=== PATIENT | male | born 1985 | race Caucasian/White ===

== ENCOUNTER → 2016-09-18 | Outpatient (CLI) | payer OTHER ==
[~2016-09-18] MED LIST: 'PARAFON FORTE500 M1 PO; BACTRIM DS 8001 TA1 PO; CEPHALEXIN500 M1 PO; CLEOCIN HCL300 MG PO; CLINDAMYCIN300 MG PO; CYCLOBENZAPRINE5 M3 PO; DELTASONE20 M1 PO; DOXYCYCLINE100 M3 PO; FLEXERIL5 MG PO; HYDROCODONE BIT1 T11; HYDROCODONE BIT1 T11 PO; MOTRIN600 MG PO; MOTRIN800 MG PO; Motrin,Rufen800 MG PO; NAPROSYN500 MG PO; NKHM; NORCO 5-325 TA1 EACH PO; NORVASC5 MG PO; PREDNICOT20 MG PO; SUBOXONE 8 MG-1 EACH SL; TESSALON PERLE100 MG PO; TORADOL10 MG PO; VICODIN 5/500 505 MG PO; VICODIN ES 7501 TAB PO; VOLTAREN75 MG PO; ZITHROMAX Z PA250 MG PO; ZOFRAN ODT4 MG SL
[2016-09-18 15:51] LABS: BASO % 0.4 % (0.0-1.0); EOS # 0.2 10*3/uL (0.0-0.4); EOS % 2.4 % (1.0-4.0); HEMOGLOBIN 13.7 g/dl (14.0-18.0); LYMPH # 2.6 10*3/uL (1.3-4.4); LYMPH % 26.8 % (27.0-41.0); MEAN CELL VOLUME 88.2 fl (80.0-94.0); MEAN CORPUSCULAR HGB 29.5 pg (27.0-31.0); MEAN CORPUSCULAR HGB CONC 33.4 g/dl (33.0-37.0); MEAN PLATELET VOLUME 9.7 fl (9.6-12.3); MONO # 0.5 10*3/uL (0.1-1.0); MONO % 5.2 % (3.0-9.0); NEUT # 6.3 10*3/uL (2.3-7.9); NEUT % 64.9 % (47.0-73.0); PLATELET COUNT AUTOMATED 421 10*3/uL (130-400); RED BLOOD COUNT 4.65 10*6/uL (4.50-5.90); RED CELL DISTRI WIDTH 12.8 % (0-14.5); WHITE BLOOD COUNT 9.7 10*3/uL (4.8-10.8)
[2016-09-18 16:06] LABS: ALBUMIN 3.7 gm/dl (3.1-4.5); ALKALINE PHOSPHATASE 102 U/L (45-117); BILIRUBIN, TOTAL 0.5 mg/dl (0.2-1.0); BUN 11 mg/dl (7-24); CARBON DIOXIDE 26 mmol/L (21-32); CHLORIDE 106 mmol/L (98-107); EST GLOM FILT AFRICAN AMERICAN > 60 ml/min; GLUCOSE 107 mg/dL (65-99); POTASSIUM 3.5 mmol/L (3.5-5.1); SGOT/AST 55 IU/L (3-35); SGPT/ALT 123 U/L (12-78); SODIUM 143 mmol/L (136-145); TOTAL PROTEIN 7.7 gm/dL (6.4-8.2)
== END | disposition home or self-care (01) ==
LOC: LAB 14:43
PROVIDERS: Family Medicine
DX: F19.10 Other psychoactive substance abuse, uncomplicated (principal); F18.10 Inhalant abuse, uncomplicated

== ENCOUNTER 2016-12-13 20:34 | Emergency (ER) | payer OTHER ==
[~2016-12-13] VITALS: Ht 182.8 cm; Wt 72.1 kg
[2016-12-13 22:27] LABS: BASO % 0.3 % (0.0-1.0); EOS # 0.1 10*3/uL (0.0-0.4); LYMPH # 2.8 10*3/uL (1.3-4.4); LYMPH % 19.3 % (27.0-41.0); MEAN CELL VOLUME 88.5 fl (80.0-94.0); MEAN CORPUSCULAR HGB 28.8 pg (27.0-31.0); MEAN CORPUSCULAR HGB CONC 32.6 g/dl (33.0-37.0); MEAN PLATELET VOLUME 9.6 fl (9.6-12.3); MONO # 0.6 10*3/uL (0.1-1.0); MONO % 4.1 % (3.0-9.0); NEUT % 74.9 % (47.0-73.0); PLATELET COUNT AUTOMATED 455 10*3/uL (130-400); RED BLOOD COUNT 4.86 10*6/uL (4.50-5.90); RED CELL DISTRI WIDTH 13.7 % (0-14.5); WHITE BLOOD COUNT 14.6 10*3/uL (4.8-10.8)
[2016-12-13 22:42] LABS: ALBUMIN 3.7 gm/dl (3.1-4.5); ALKALINE PHOSPHATASE 86 U/L (45-117); BUN 9 mg/dl (7-24); CHLORIDE 105 mmol/L (98-107); CREATININE 0.89 mg/dL (0.70-1.30); POTASSIUM 3.7 mmol/L (3.5-5.1); SGOT/AST 20 IU/L (3-35); SGPT/ALT 36 U/L (12-78); SODIUM 141 mmol/L (136-145); TOTAL PROTEIN 8.5 gm/dL (6.4-8.2)
== END 2016-12-14 03:40 | disposition short-term general hospital (02) ==
LOC: ED 20:34
PROVIDERS: Physician Assistant
DX: A41.9 Sepsis, unspecified organism (principal); R65.20 Severe sepsis without septic shock; L02.413 Cutaneous abscess of right upper limb; F19.10 Other psychoactive substance abuse, uncomplicated; F17.200 Nicotine dependence, unspecified, uncomplicated; Z79.899 Other long term (current) drug therapy; Z88.0 Allergy status to penicillin; Z88.1 Allergy status to other antibiotic agents; Z91.041 Radiographic dye allergy status; Z88.6 Allergy status to analgesic agent

== ENCOUNTER → 2016-12-19 | Outpatient (CLI) | payer OTHER ==
--- NOTE | ~2016-12-19 | PR ---
[place], [place] PROGRESS NOTE NAME: [facility] #: [id number] UNIT #: [id number] ROOM: DOCTOR: TENNILLE EnglishVITOR BIRTHDATE: [birth year] DOS: 12/19/2016 CHIEF COMPLAINT: Abscess wound of the right arm near the elbow area. HISTORY OF PRESENT ILLNESS: This is a 31-year-old male with a history of longstanding IV drug abuse, who presented to the Emergency Room Department on 12/14/2016 with a large abscess of the right elbow area. This was drained in the ER and was noted to be quite large. Apparently, he did have a high lactic acid level 2.6 and a high white count of 14,000, concern for sepsis was noted. The patient was transferred to [facility] for further management. Apparently, according to the patient and family who his mother who brings him in. He had multiple incision and drainages during his stay at [facility] and they did not take him to the operating room for this, it was felt that at the bedside according to the mother. In any case, the patient was treated for 4 days of IV antibiotics and he is PENICILLIN allergic and was sent home to manage the wound. They have been using plain packing to pack the wound with and he presents today with an open wound of the right forearm, elbow area. PAST MEDICAL HISTORY: Significant for the following, he has had a history of a TIA. He has a heroin addiction. He has a history of forearm abscess last year, which he did come here in the [facility]ound [facility] for and sinus brain abscess x 3, has had right rotator cuff surgery, right carpal tunnel surgery. Apparently, he has had surgeries for the brain abscesses. He has had all his teeth removed as well. FAMILY HISTORY: Significant for cancer, hypertension, diabetes and heart disease. SOCIAL HISTORY: He continues to smoke 1-1/2 packs per day. He is and has a history of drug use. ALLERGIES: He IS ALLERGIC TO BENADRYL, PENICILLIN AND RED FOOD DYE. MEDICATIONS: are as follows: Hydroxyzine 50 p.o. q.i.d. p.r.n. for anxiety, clonidine 0.1 mg tablets 2 tablets at bedtime p.r.n. for agitation, naproxen 500 p.o. b.i.d., melatonin 3 mg tablets p.r.n. for insomnia and he is completing a course of Bactrim Double Strength 1 tablet p.o. b.i.d. for 8 days, he states he has about 5 days left. REVIEW OF SYSTEMS: He says since discharge, he has been noted to feel some dyspnea on exertion, occasional chills. No fevers. No nausea or vomiting. No problems with the antibiotics. No chest pains at all. He does have some green drainage associated with the wound. I asked specifically if he has ever had a history of endocarditis and he states that he is not aware of anything related to that. PHYSICAL EXAMINATION: VITAL SIGNS: Temperature is 98.4, pulse 78, respirations 18, blood pressure 100/70. GENERAL: This is a male who appears thin and disheveled, older than his stated [place], [place] PROGRESS NOTE NAME: LISHA KELLY UNIT #: [id number] ROOM: DOCTOR: VITOR NULL M.D. BIRTHDATE: [birth year] age, in no acute distress. His oropharynx is clear. He is completely edentulous. Extraocular movements are intact. Sclerae nonicteric. There is no JVD. LUNGS: Clear to auscultation. CARDIOVASCULAR: S1 and S2, regular rate and rhythm. I do not appreciate a murmur. ABDOMEN: Soft and nontender. EXTREMITIES: He has multiple scars on his lower extremities and upper extremities from previous wounds. The patient states that he never injected himself in the lower extremities and those wounds are from work related carrasco according to the patient. He has multiple echevarria, scars from injection drug use on the bilateral arms and hands also noted. He has an open wound of the right elbow actually 0.5 x 1.6 x 0.4. There is a little bit of undermining at the 6 o'clock position of 0.3. Overall, it looks clean. It is mildly indurated. It is not acutely erythematous. There is no fluctuance. There is no overt cellulitis and there is no necrotic tissue and no purulence. It looks clean. No debridement was done. ASSESSMENT AND PLAN: Abscess of the right elbow, which is stable and clean, it looks good. At this time, I would switch to Sooqini Ag ribbon to it and cover with a foam to keep it protected. I did explain to the family and the patient that he needs to definitely discuss with his PCP regarding his episodes of shortness of breath that he has been having. Followup is in one week. VITOR NULL MD CM:MAURILIO [id number] VITOR NULL M.D. 12/20/16 0121 interface
== END ==
LOC: WOUNDCARE 03:44
DX: L02.413 Cutaneous abscess of right upper limb (principal); F17.210 Nicotine dependence, cigarettes, uncomplicated; Z86.73 Personal history of transient ischemic attack (TIA), and cerebral infarction without residual deficits

== ENCOUNTER → 2016-12-27 | Outpatient (CLI) | payer OTHER ==
--- NOTE | ~2016-12-27 | PR ---
[place], [place] PROGRESS NOTE NAME: LISHA KELLY [facility] #: [id number] UNIT #: [id number] ROOM: DOCTOR: TENNILLE English,VITOR BIRTHDATE: [birth year] DOS: 12/27/2016 CHIEF COMPLAINT: Followup of open wound of the right elbow. HISTORY OF PRESENT ILLNESS: This is a 31-year-old male with a history of IV drug abuse, who had an abscess drained from his right forearm, elbow area. He was seen in the Wound Clinic for last week with an open wound that had some depth to it with a little bit of undermining. Aquacel Ag rope was recommended. The patient comes in for his routine followup. He has no specific complaints. The wound is so small at this point and is not able to pack it anymore. He does have multiple excoriations on both of his forearms and legs from repetitive picking and these are chronic. His vitals are stable. Temperature is 98.3, pulse of 80, respirations 18, blood pressure is 120/82. The wound is measuring much smaller 0.3 x 0.7 x 0.1. It is healing nicely. It is on its way to healing. There is no necrotic tissue. It flush with rest of the skin. No debridement was done. ASSESSMENT AND PLAN: Healing abscess wound of the right forearm, elbow area. We will change to bacitracin and a Band-Aid and have him follow up in one week. I did also recommend for his multiple excoriations that are repetitive and from chronic picking to try TheraHoney and to keep them covered. Followup is in one week. VITOR NULL MD CM:PNTRANS [id number] VITOR NULL M.D. 12/28/16 0057 interface
== END | disposition home or self-care (01) ==
LOC: WOUNDCARE 01:42
DX: L02.413 Cutaneous abscess of right upper limb (principal)

== ENCOUNTER 2016-12-29 16:43 | Emergency (ER) | payer OTHER ==
[~2016-12-29] VITALS: Ht 177.8 cm; Wt 63.5 kg
[2016-12-29 17:28] LABS: BASO % 0.2 % (0.0-1.0); EOS # 0.2 10*3/uL (0.0-0.4); EOS % 1.4 % (1.0-4.0); HEMOGLOBIN 11.1 g/dl (14.0-18.0); LYMPH # 2.5 10*3/uL (1.3-4.4); LYMPH % 21.1 % (27.0-41.0); MEAN CELL VOLUME 85.9 fl (80.0-94.0); MEAN CORPUSCULAR HGB 28.9 pg (27.0-31.0); MEAN CORPUSCULAR HGB CONC 33.6 g/dl (33.0-37.0); MEAN PLATELET VOLUME 9.3 fl (9.6-12.3); MONO # 0.4 10*3/uL (0.1-1.0); MONO % 3.4 % (3.0-9.0); NEUT # 8.7 10*3/uL (2.3-7.9); NEUT % 73.6 % (47.0-73.0); PLATELET COUNT AUTOMATED 328 10*3/uL (130-400); RED BLOOD COUNT 3.84 10*6/uL (4.50-5.90); RED CELL DISTRI WIDTH 13.5 % (0-14.5); WHITE BLOOD COUNT 11.8 10*3/uL (4.8-10.8)
[2016-12-29 17:36] LABS: ACT PARTIAL THROMBO TIME 27.8 SECONDS (20.8-31.5)
[2016-12-29 17:42] LABS: ALBUMIN 3.4 gm/dl (3.1-4.5); ALKALINE PHOSPHATASE 100 U/L (45-117); BUN 19 mg/dl (7-24); CHLORIDE 102 mmol/L (98-107); CPK 617 U/L (39-308); CREATININE 0.71 mg/dL (0.70-1.30); LIPASE 65 U/L (73-393); MAGNESIUM 1.9 mg/dL (1.5-2.1); POTASSIUM 3.6 mmol/L (3.5-5.1); SGOT/AST 37 IU/L (3-35); SGPT/ALT 47 U/L (12-78); SODIUM 134 mmol/L (136-145); TOTAL PROTEIN 7.5 gm/dL (6.4-8.2)
[2016-12-29 17:43] LABS: TROPONIN I < 0.015 ng/ml (<0.045)
[2016-12-29 17:44] LABS: CKMB 5.1 ng/ml (0.5-3.6)
== END 2016-12-29 20:55 | disposition short-term general hospital (02) ==
LOC: ED 16:43
PROVIDERS: Emergency Medicine
DX: L02.01 Cutaneous abscess of face (principal); Z79.899 Other long term (current) drug therapy; Z98.890 Other specified postprocedural states; Z88.0 Allergy status to penicillin; Z88.1 Allergy status to other antibiotic agents; Z91.041 Radiographic dye allergy status; Z88.6 Allergy status to analgesic agent

== ENCOUNTER 2017-10-19 19:58 | Emergency (ER) | payer OTHER ==
[~2017-10-19] VITALS: Ht 182.8 cm; Wt 72.6 kg
== END 2017-10-19 20:20 | disposition home or self-care (01) ==
LOC: ED 19:58
DX: T15.01XA Foreign body in cornea, right eye, initial encounter (principal); Z23 Encounter for immunization; Z98.890 Other specified postprocedural states; Z79.899 Other long term (current) drug therapy; Z88.0 Allergy status to penicillin; Z91.041 Radiographic dye allergy status; Z88.8 Allergy status to other drugs, medicaments and biological substances; W45.8XXA Other foreign body or object entering through skin, initial encounter; Y93.89 Activity, other specified; Y92.69 Other specified industrial and construction area as the place of occurrence of the external cause; Y99.8 Other external cause status

== ENCOUNTER → 2019-12-15 | Outpatient (CLI) | payer BC | END | disposition home or self-care (01) | LOC: COVID19 00:06 | PROVIDERS: ATTEND Internal Medicine | DX: Z20.828 Contact with and (suspected) exposure to other viral communicable diseases (principal) ==

== ENCOUNTER → 2020-10-22 | Outpatient (CLI) | payer OTHER ==
[2020-10-22 12:27] LABS: BASO % 0.4 % (0.0-1.0); EOS # 0.2 10*3/uL (0.0-0.4); EOS % 2.9 % (1.0-4.0); HEMATOCRIT 58.3 % (42.0-52.0); LYMPH # 2.7 10*3/uL (1.3-4.4); MEAN CELL VOLUME 93.1 fl (80.0-94.0); MEAN CORPUSCULAR HGB 33.1 pg (27.0-31.0); MEAN CORPUSCULAR HGB CONC 35.5 g/dl (33.0-37.0); MEAN PLATELET VOLUME 9.9 fl (9.6-12.3); MONO # 0.5 10*3/uL (0.1-1.0); MONO % 6.9 % (3.0-9.0); NEUT # 3.9 10*3/uL (2.3-7.9); NEUT % 52.7 % (47.0-73.0); PLATELET COUNT AUTOMATED 241 10*3/uL (130-400); RED BLOOD COUNT 6.26 10*6/uL (4.50-5.90); WHITE BLOOD COUNT 7.4 10*3/uL (4.8-10.8)
[2020-10-22 12:45] LABS: ALBUMIN 3.7 gm/dl (3.1-4.5); ALKALINE PHOSPHATASE 114 U/L (45-117); BUN 5 mg/dl (7-24); CHLORIDE 111 mmol/L (98-107); CHOLESTEROL 233 mg/dL (<200); CREATININE 0.86 mg/dL (0.70-1.30); LDL CHOLESTEROL 152 mg/dL (9-159); POTASSIUM 3.2 mmol/L (3.5-5.1); SGOT/AST 49 IU/L (3-35); SGPT/ALT 87 U/L (12-78); SODIUM 139 mmol/L (136-145); TOTAL PROTEIN 7.6 gm/dL (6.4-8.2); TRIGLYCERIDES 227 mg/dl (<150)
[2020-10-22 13:10] LABS: VITAMIN D, 25-HYDROXY 26.5 ng/mL (30-100)
== END | disposition home or self-care (01) ==
LOC: LAB 11:57
PROVIDERS: ATTEND Internal Medicine
DX: E03.9 Hypothyroidism, unspecified (principal); M54.5 Low back pain; D52.9 Folate deficiency anemia, unspecified; D51.9 Vitamin B12 deficiency anemia, unspecified; R70.0 Elevated erythrocyte sedimentation rate; R79.82 Elevated C-reactive protein (CRP); R74.8 Abnormal levels of other serum enzymes; R79.89 Other specified abnormal findings of blood chemistry; R53.81 Other malaise; E55.9 Vitamin D deficiency, unspecified; Z13.0 Encounter for screening for diseases of the blood and blood-forming organs and certain disorders involving the immune mechanism; Z13.1 Encounter for screening for diabetes mellitus; Z13.21 Encounter for screening for nutritional disorder; Z13.220 Encounter for screening for lipoid disorders; Z00.01 Encounter for general adult medical examination with abnormal findings

== ENCOUNTER 2021-12-15 08:58 | Inpatient (IN) | payer BC ==
[~2021-12-15] VITALS: Ht 182.9 cm; Wt 77.1 kg
[2021-12-15] VITALS (7 sets, daily range): BP systolic 178–188; BP diastolic 80–100
[2021-12-15 09:32] LABS: BASO % 0.6 % (0.0-1.0); EOS # 0.2 10*3/uL (0.0-0.4); EOS % 2.4 % (1.0-4.0); HEMATOCRIT 52.3 % (42.0-52.0); LYMPH # 1.9 10*3/uL (1.3-4.4); LYMPH % 27.5 % (27.0-41.0); MEAN CELL VOLUME 93.1 fl (80.0-94.0); MEAN CORPUSCULAR HGB CONC 34.4 g/dl (33.0-37.0); MEAN PLATELET VOLUME 9.3 fl (9.6-12.3); MONO # 0.5 10*3/uL (0.1-1.0); MONO % 6.8 % (3.0-9.0); NEUT # 4.4 10*3/uL (2.3-7.9); NEUT % 62.6 % (47.0-73.0); PLATELET COUNT AUTOMATED 324 10*3/uL (130-400); RED BLOOD COUNT 5.62 10*6/uL (4.50-5.90); RED CELL DISTRI WIDTH 13.6 % (0-14.5)
[2021-12-15 09:42] LABS: ACT PARTIAL THROMBO TIME 27.1 SECONDS (20.0-32.1)
[2021-12-15 09:47] LABS: ALKALINE PHOSPHATASE 98 U/L (45-117); BUN 17 mg/dl (7-24); CHLORIDE 112 mmol/L (98-107); CREATININE 0.89 mg/dL (0.70-1.30); POTASSIUM 4.4 mmol/L (3.5-5.1); SGOT/AST 20 IU/L (3-35); SGPT/ALT 42 U/L (12-78); SODIUM 141 mmol/L (136-145); TOTAL PROTEIN 7.5 gm/dL (6.4-8.2)
[2021-12-15 09:48] LABS: ETHYL ALCOHOL < 3.0 mg/dl (<3)
[2021-12-15 10:37] LABS: BILIRUBIN Negative (Negative); BLOOD Negative (Negative); CLARITY Clear (Clear); COLOR Yellow (Yellow); GLUCOSE Negative (Negative); KETONE Trace (Negative); LEUKO ESTERASE Negative (Negative); NITRITE Negative (Negative); PH 5.5 (4.5-8.0); SPECIFIC GRAVITY 1.025 (1.001-1.030)
[2021-12-15 10:49] LABS: URINE AMPHETAMINES < 1000 (1000ng/ml); URINE BARBITURATES < 200 (200ng/ml); URINE BENZODIAZEPINES < 200 (200ng/ml); URINE CANNABINOIDS (THC) < 50 (50ng/ml); URINE COCAINE < 300 (300ng/ml); URINE METHADONE < 300 (300ng/ml); URINE OPIATES < 300 (300ng/ml)
[2021-12-15 10:55] LABS: MUCOUS TRACE; RBC 0-2 rbc/hpf (0-2)
[2021-12-15 10:56] LABS: URINE PHENCYCLIDINE < 25 (25ng/ml)
[2021-12-16] VITALS: BP 180/98
[2021-12-16 04:00] VITALS: BP 158/82
[2021-12-16 06:15] LABS: BUN 15 mg/dl (7-24); CHLORIDE 111 mmol/L (98-107); CHOLESTEROL 188 mg/dL (<200); CREATININE 0.75 mg/dL (0.70-1.30); LDL CHOLESTEROL 123 mg/dL (9-159); POTASSIUM 3.5 mmol/L (3.5-5.1); SODIUM 142 mmol/L (136-145); TRIGLYCERIDES 155 mg/dl (<150)
[2021-12-16 08:00] VITALS: BP 149/104
[2021-12-16 12:00] VITALS: BP 170/100
[2021-12-16 14:17] VITALS: BP 160/88
[2021-12-16 16:46] VITALS: BP 160/88
== END 2021-12-16 17:48 | disposition left against medical advice (07) | DRG 894 ==
LOC: ED 08:58 → 5E 09:11 → EDHOLD 09:11 → 5E 19:23
PROVIDERS: Emergency Medicine; Registered Nurse; ADMIT Internal Medicine; ATTEND Internal Medicine
DX: F10.239 Alcohol dependence with withdrawal, unspecified (principal); Z53.29 Procedure and treatment not carried out because of patient's decision for other reasons; I10 Essential (primary) hypertension; F41.9 Anxiety disorder, unspecified; E87.8 Other disorders of electrolyte and fluid balance, not elsewhere classified; Z88.0 Allergy status to penicillin; Z88.1 Allergy status to other antibiotic agents; Z91.041 Radiographic dye allergy status; Z83.3 Family history of diabetes mellitus; Z82.49 Family history of ischemic heart disease and other diseases of the circulatory system

== ENCOUNTER 2022-05-17 16:21 | Emergency (ER) | payer BC ==
[~2022-05-17] VITALS: Ht 182.8 cm; Wt 70.3 kg
== END 2022-05-17 17:05 | disposition home or self-care (01) ==
LOC: ED 16:21
DX: N50.811 Right testicular pain (principal); Z88.0 Allergy status to penicillin; Z88.1 Allergy status to other antibiotic agents; Z91.041 Radiographic dye allergy status; Z88.8 Allergy status to other drugs, medicaments and biological substances; Z98.890 Other specified postprocedural states; F10.10 Alcohol abuse, uncomplicated; F17.210 Nicotine dependence, cigarettes, uncomplicated

== ENCOUNTER → 2022-05-18 | Outpatient (CLI) | payer BC ==
[2022-05-18 08:44] LABS: BASO % 0.6 % (0.0-1.0); EOS # 0.2 10*3/uL (0.0-0.4); EOS % 2.5 % (1.0-4.0); HEMATOCRIT 55.2 % (42.0-52.0); LYMPH # 2.2 10*3/uL (1.3-4.4); LYMPH % 30.7 % (27.0-41.0); MEAN CELL VOLUME 91.8 fl (80.0-94.0); MEAN CORPUSCULAR HGB 30.8 pg (27.0-31.0); MEAN CORPUSCULAR HGB CONC 33.5 g/dl (33.0-37.0); MEAN PLATELET VOLUME 9.2 fl (9.6-12.3); MONO # 0.5 10*3/uL (0.1-1.0); MONO % 6.6 % (3.0-9.0); NEUT # 4.3 10*3/uL (2.3-7.9); NEUT % 59.5 % (47.0-73.0); PLATELET COUNT AUTOMATED 360 10*3/uL (130-400); RED BLOOD COUNT 6.01 10*6/uL (4.50-5.90); RED CELL DISTRI WIDTH 13.2 % (0-14.5); WHITE BLOOD COUNT 7.2 10*3/uL (4.8-10.8)
[2022-05-18 09:01] LABS: ALKALINE PHOSPHATASE 104 U/L (46-116); CHLORIDE 105 mmol/L (98-107); CHOLESTEROL 188 mg/dL (<200); FREE T4 0.94 ng/dl (0.89-1.76); LDL CHOLESTEROL 128 mg/dL (9-159); SGPT/ALT 40 U/L (10-49); THYROID STIM HORMONE (HS) 1.263 uIU/ml (0.550-4.780); TOTAL PROTEIN 7.5 gm/dL (6.0-8.0); TRIGLYCERIDES 97 mg/dl (<150)
[2022-05-18 09:02] LABS: BUN < 5 mg/dl (9-23)
[2022-05-18 09:53] LABS: VITAMIN D, 25-HYDROXY 13.6 ng/mL (30-100)
[2022-05-19 07:06] LABS: HBSAG Negative (Negative); HEP B CORE AB, IGM Negative (Negative)
[2022-05-22 18:06] LABS: HEPATITIS C ANTIBODY >11.0 (0.0-0.9)
== END | disposition home or self-care (01) ==
LOC: LAB 07:33 → US 12:00
PROVIDERS: ATTEND Internal Medicine
DX: Z13.89 Encounter for screening for other disorder (principal); Z13.0 Encounter for screening for diseases of the blood and blood-forming organs and certain disorders involving the immune mechanism; Z13.21 Encounter for screening for nutritional disorder; Z13.220 Encounter for screening for lipoid disorders; Z13.228 Encounter for screening for other metabolic disorders; Z13.6 Encounter for screening for cardiovascular disorders; Z13.9 Encounter for screening, unspecified; B19.10 Unspecified viral hepatitis B without hepatic coma; B18.2 Chronic viral hepatitis C; E29.9 Testicular dysfunction, unspecified; N43.3 Hydrocele, unspecified

== ENCOUNTER 2024-07-10 12:20 | Emergency (ER) | payer OTHER ==
[~2024-07-10] VITALS: Wt 68.0 kg
[2024-07-10] MEDS ORDERED: BUPRENORPHINE-1 EAC1 SL (12:31)
[2024-07-10] MEDS ORDERED: PREDNISONE20 M1 PO (12:39)
[2024-07-10] MEDS ORDERED: methylPREDNISolone sod succ 125 MG VIAL IM ONE (12:40)
== END 2024-07-10 12:43 | disposition home or self-care (01) ==
LOC: ED 12:20
DX: L25.9 Unspecified contact dermatitis, unspecified cause (principal); I10 Essential (primary) hypertension; F41.9 Anxiety disorder, unspecified; F17.210 Nicotine dependence, cigarettes, uncomplicated; Z88.0 Allergy status to penicillin; Z88.1 Allergy status to other antibiotic agents; Z91.041 Radiographic dye allergy status; Z88.8 Allergy status to other drugs, medicaments and biological substances; Z79.899 Other long term (current) drug therapy; Z98.890 Other specified postprocedural states; Z86.73 Personal history of transient ischemic attack (TIA), and cerebral infarction without residual deficits

== ENCOUNTER 2024-10-20 19:02 | Emergency (ER) | payer OTHER ==
[~2024-10-20] VITALS: Ht 182.8 cm; Wt 70.3 kg
[~2024-10-20 19:02] MED LIST changes: +BUPRENORPHINE-1 EAC1 SL; +PREDNISONE20 M1 PO
[2024-10-20] MEDS ORDERED: methylPREDNISolone sod succ 125 MG VIAL IM ONE (19:15)
[2024-10-20] MEDS ORDERED: PREDNISONE20 M1 PO (19:15)
[2024-10-20] MEDS ORDERED: Water, Sterile 10 ML VIAL ONE (19:49)
== END 2024-10-20 19:41 | disposition home or self-care (01) ==
LOC: ED 19:02
DX: L23.7 Allergic contact dermatitis due to plants, except food (principal); F17.200 Nicotine dependence, unspecified, uncomplicated; Z79.899 Other long term (current) drug therapy; Z88.0 Allergy status to penicillin; Z88.1 Allergy status to other antibiotic agents; Z88.8 Allergy status to other drugs, medicaments and biological substances; Z91.041 Radiographic dye allergy status; Z98.890 Other specified postprocedural states

== ENCOUNTER → 2024-12-02 | Outpatient (CLI) | payer OTHER ==
[2024-12-02 17:00] LABS: BASO # 0.0 10*3/uL (0.0-0.1); BASO % 0.3 % (0.0-1.0); EOS # 0.2 10*3/uL (0.0-0.4); EOS % 2.6 % (1.0-4.0); MEAN CELL VOLUME 95.1 fl (80.0-94.0); MEAN CORPUSCULAR HGB 31.2 pg (27.0-31.0); MEAN PLATELET VOLUME 9.5 fl (9.6-12.3); MONO # 0.6 10*3/uL (0.1-1.0); MONO % 6.7 % (3.0-9.0); NEUT # 5.2 10*3/uL (2.3-7.9); NEUT % 59.2 % (47.0-73.0); NUCLEATED RED BLOOD CELL 0.0 % (0.0-0.0); NUCLEATED RED BLOOD CELL 0.0 10*3/uL (0.0-0.0); PLATELET COUNT AUTOMATED 418 10*3/uL (130-400); RED CELL DISTRI WIDTH 13.0 % (0-14.5)
[2024-12-02 17:40] LABS: BUN 12 mg/dl (9-23); LDL CHOLESTEROL 140 mg/dL (9-159); SGPT/ALT 9 U/L (5-49)
== END | disposition home or self-care (01) ==
LOC: RHCWE 10:34
PROVIDERS: ATTEND Nurse Practitioner Family
DX: Z13.0 Encounter for screening for diseases of the blood and blood-forming organs and certain disorders involving the immune mechanism (principal); Z13.1 Encounter for screening for diabetes mellitus; Z13.220 Encounter for screening for lipoid disorders; Z13.29 Encounter for screening for other suspected endocrine disorder

== ENCOUNTER 2025-03-05 11:51 | Emergency (ER) | payer OTHER ==
[~2025-03-05] VITALS: Wt 70.3 kg
[2025-03-05] MEDS ORDERED: AMLODIPINE BESYL5 MG PO (12:05)
[2025-03-05] MEDS ORDERED: CETIRIZINE HYDR10 MG PO (12:05)
[2025-03-05] MEDS ORDERED: PANTOPRAZOLE SO40 MG PO (12:05)
[2025-03-05] MEDS ORDERED: ROSUVASTATIN CA10 MG PO (12:06)
[2025-03-05] MEDS ORDERED: PREDNISONE20 M1 PO (13:16)
== END 2025-03-05 13:41 | disposition home or self-care (01) ==
LOC: ED 11:51
DX: S46.911A Strain of unspecified muscle, fascia and tendon at shoulder and upper arm level, right arm, initial encounter (principal); F41.9 Anxiety disorder, unspecified; I10 Essential (primary) hypertension; Z98.890 Other specified postprocedural states; Z88.0 Allergy status to penicillin; Z88.1 Allergy status to other antibiotic agents; Z88.8 Allergy status to other drugs, medicaments and biological substances; Z86.73 Personal history of transient ischemic attack (TIA), and cerebral infarction without residual deficits; Z87.442 Personal history of urinary calculi; X58.XXXA Exposure to other specified factors, initial encounter; Y93.89 Activity, other specified; Y92.89 Other specified places as the place of occurrence of the external cause; Y99.8 Other external cause status